=== PATIENT | female | born 1965 ===

== ENCOUNTER 2017-11-10 05:50 | Day surgery (SDC) | payer OTHER ==
[~2017-11-10 05:50] MED LIST: WELLBUTRIN SR200 MG PO
== END 2017-11-10 10:00 | disposition home or self-care (01) ==
LOC: AMB-ENDOS 05:50
DX: K64.0 First degree hemorrhoids (principal); Z12.11 Encounter for screening for malignant neoplasm of colon

== ENCOUNTER 2018-11-17 13:43 | Outpatient (CLI) | payer OTHER | END 2018-11-17 13:45 | disposition home or self-care (01) | LOC: MAMO-SONO 13:43 | DX: Z12.31 Encounter for screening mammogram for malignant neoplasm of breast (principal); N60.11 Diffuse cystic mastopathy of right breast; N60.12 Diffuse cystic mastopathy of left breast ==

== ENCOUNTER → 2018-11-17 | Outpatient (CLI) | payer OTHER | END | disposition home or self-care (01) | LOC: NUCLEAR 14:30 | DX: M81.0 Age-related osteoporosis without current pathological fracture (principal) ==

== ENCOUNTER 2020-05-22 11:08 | Outpatient (CLI) | payer OTHER | END 2020-05-22 11:22 | disposition home or self-care (01) | LOC: MAMO-SONO 11:08 | PROVIDERS: ATTEND Obstetrics & Gynecology | DX: Z12.31 Encounter for screening mammogram for malignant neoplasm of breast (principal); N60.11 Diffuse cystic mastopathy of right breast; N60.12 Diffuse cystic mastopathy of left breast ==

== ENCOUNTER → 2021-05-29 14:47 | Outpatient (CLI) | payer OTHER | END | disposition home or self-care (01) | LOC: RAD 14:47 | PROVIDERS: ATTEND Internal Medicine Rheumatology | DX: M15.0 Primary generalized (osteo)arthritis (principal); M25.812 Other specified joint disorders, left shoulder ==

== ENCOUNTER 2021-06-01 14:36 | Outpatient (CLI) | payer OTHER | END 2021-06-01 14:42 | disposition home or self-care (01) | LOC: NUCLEAR 14:36 | PROVIDERS: ATTEND Internal Medicine Rheumatology | DX: M81.0 Age-related osteoporosis without current pathological fracture (principal) ==

== ENCOUNTER 2023-03-05 12:07 | Outpatient (CLI) | payer OTHER | END 2023-03-05 12:18 | disposition home or self-care (01) | LOC: RAD 12:07 | PROVIDERS: ATTEND Internal Medicine Rheumatology | DX: M17.0 Bilateral primary osteoarthritis of knee (principal) ==

== ENCOUNTER 2023-05-29 10:40 | Outpatient (CLI) | payer OTHER | END 2023-05-29 10:55 | disposition home or self-care (01) | LOC: MAMO-SONO 10:40 | PROVIDERS: ATTEND Internal Medicine | DX: Z12.31 Encounter for screening mammogram for malignant neoplasm of breast (principal); Z12.9 Encounter for screening for malignant neoplasm, site unspecified ==

== ENCOUNTER 2023-08-08 14:28 | Outpatient (CLI) | payer OTHER | END 2023-08-08 14:31 | disposition home or self-care (01) | LOC: NUCLEAR 14:28 | PROVIDERS: ATTEND Obstetrics & Gynecology | DX: M81.0 Age-related osteoporosis without current pathological fracture (principal) ==

== ENCOUNTER 2023-08-08 14:55 | Outpatient (CLI) | payer OTHER | END 2023-08-08 14:57 | disposition home or self-care (01) | LOC: SONOGRAMA 14:55 | PROVIDERS: ATTEND Obstetrics & Gynecology | DX: R10.2 Pelvic and perineal pain (principal) ==

== ENCOUNTER 2023-11-03 12:00 | Outpatient (CLI) | payer OTHER | END 2023-11-03 12:08 | disposition home or self-care (01) | LOC: RAD 12:00 | PROVIDERS: ATTEND Internal Medicine Rheumatology | DX: M16.0 Bilateral primary osteoarthritis of hip (principal); M54.50 Low back pain, unspecified ==

== ENCOUNTER 2023-11-07 08:49 | Outpatient (CLI) | payer OTHER | END 2023-11-07 08:52 | disposition home or self-care (01) | LOC: SONOGRAMA 08:49 | PROVIDERS: ATTEND Internal Medicine Rheumatology | DX: R11.10 Vomiting, unspecified (principal); R10.32 Left lower quadrant pain ==

== ENCOUNTER 2024-01-20 14:58 | Outpatient (CLI) | payer OTHER | END 2024-01-20 15:06 | disposition home or self-care (01) | LOC: RAD 14:58 | PROVIDERS: ATTEND Orthopaedic Surgery Adult Reconstructive Orthopaedic Surgery | DX: I11.9 Hypertensive heart disease without heart failure (principal) ==

== ENCOUNTER 2024-06-09 13:53 | Outpatient (CLI) | payer OTHER | END 2024-06-09 14:02 | disposition home or self-care (01) | LOC: MAMO-SONO 13:53 | PROVIDERS: ATTEND Obstetrics & Gynecology | DX: N60.11 Diffuse cystic mastopathy of right breast (principal); N60.12 Diffuse cystic mastopathy of left breast; Z12.31 Encounter for screening mammogram for malignant neoplasm of breast ==

== ENCOUNTER 2025-09-06 14:03 | Outpatient (CLI) | payer OTHER | END 2025-09-06 14:26 | disposition home or self-care (01) | LOC: MAMO-SONO 14:03 | PROVIDERS: ATTEND Student in an Organized Health Care Education/Training Program | DX: N60.11 Diffuse cystic mastopathy of right breast (principal); N60.12 Diffuse cystic mastopathy of left breast ==